=== PATIENT | male | born 1975 | race Caucasian/White ===

== ENCOUNTER 2019-05-16 14:30 | Inpatient (IN) ==
--- NOTE | 2019-05-16 15:31 | Emergency Department Note ---
Disposition Clinical Impression: ALLA (acute kidney injury) CHI (closed head injury) Qualifiers: Encounter type: initial encounter Qualified Code(s): S09.90XA - Unspecified injury of head, initial encounter Pneumonia Qualifiers: Pneumonia type: due to unspecified organism Laterality: right Lung location: upper lobe of lung Qualified Code(s): J18.1 - Lobar pneumonia, unspecified organism Sepsis Qualifiers: Sepsis type: sepsis due to unspecified organism Sepsis acute organ dysfunction status: unspecified Qualified Code(s): A41.9 - Sepsis, unspecified organism Disposition: Admitted As Inpatient Condition: Good Forms: ED Satisfaction Letter Time of Disposition: 17:28 General Adult HPI - General Chief complaint: ED Fall Stated complaint: Pain all over post fall 2 days ago Time Seen by Provider: 05/16/19 15:03 Source: patient Mode of arrival: private vehicle Limitations: no limitations Nursing Notes Reviewed: Yes Vital Signs Reviewed: Yes - History of Present Illness Pain Scale: 10 - Related Data Home Medications Medication Instructions Recorded Confirmed Aspirin 81 mg PO DAILY 06/30/15 02/22/19 Albuterol Neb [Proventil Neb] 2.5 mg IH Q4HR 09/08/16 02/22/19 Gabapentin [Neurontin] 600 mg PO TID 09/08/16 02/22/19 Multivitamin [One Daily Essential] 1 each PO DAILY 09/08/16 02/22/19 Lisinopril-HCTZ 10-12.5 [Prinzide 1 tab PO DAILY 02/24/19 02/24/19 10-12.5] Previous Rx's Medication Instructions Recorded Benzonatate [Tessalon] 100 mg PO TID PRN 5 Days #15 02/26/19 capsule Nicotine Patch [Nicoderm] 21 mg TD DAILY #15 patch.td24 02/26/19 levoFLOXacin [Levaquin] 750 mg PO DAILY #4 tablet 02/26/19 Allergies Allergy/AdvReac Type Severity Reaction Status Date / Time ibuprofen AdvReac Vomiting Verified 02/24/19 07:43 Past Medical History - Past Medical History Medical history: Reports: CHF, hypertension, other Surgical history: Reports: orthopedic, other, other Psychiatric history: Reports: no psych history - Social History Smoking Status: Current every day smoker Smokeless Tobacco Status: No Alcohol use: Reports: occasionally Drug use: Reports: none Physical Exam - General General appearance: alert Course Vital Signs Temperature 98.8 F 05/16/19 14:43 Pulse Rate 120 05/16/19 14:43 Respiratory Rate 20 05/16/19 14:43 Blood Pressure 100/50 05/16/19 14:43 O2 Sat by Pulse Oximetry 96 05/16/19 14:43 Temperature 98.8 F 05/16/19 15:05 Pulse Rate 119 05/16/19 15:09 Respiratory Rate 17 05/16/19 15:09 Blood Pressure 150/113 05/16/19 15:09 O2 Sat by Pulse Oximetry 94 05/16/19 15:09 Oxygen Delivery Oxygen Delivery Room Air Medical Decision Making - Lab Data Result diagrams: 05/16/19 15:44 05/16/19 15:44 Lab Results 05/16/19 05/16/19 05/16/19 Range/Units 15:44 15:44 15:44 WBC 12.5 H (4.3-11.1) K/mcL RBC 5.02 (4.19-5.50) M/mcL Hgb 15.4 (12.9-16.9) g/dL Hct 45.9 (37.5-50.1) % MCV 91.4 (83.0-100.0) fL MCH 30.7 (28.0-33.3) pg MCHC 33.6 (31.6-35.5) g/dL RDW 14.4 (11.5-14.5) % Plt Count 206 (140-400) K/mcL MPV 10.6 (9.4-12.4) fL Immature Gran % 0.5 (0-4) % Seg Neutrophils % 75.9 % Lymphocytes % 13.4 % Monocytes % 9.8 % Eosinophils % 0.2 % Basophils % 0.2 % Neutrophils # 9.5 H (1.6-8.9) K/mcL Lymphocytes # 1.7 (0.6-4.6) K/mcL Monocytes # 1.2 (0.0-1.3) K/mcL Eosinophils # 0.0 (0.0-0.6) K/mcL Basophils # 0.0 (0.0-0.2) K/mcL Sodium 128 L (136-145) mEq/L Potassium 4.4 (3.5-5.1) mEq/L Chloride 96 L (98-107) mEq/L Carbon Dioxide 27 (23-29) mEq/L BUN 18 (6-20) mg/dL Creatinine 1.66 H (0.70-1.30) mg/dL Est GFR ( Amer) 55 L (> 60) Est GFR (Non-Af Amer) 45 L (> 60) BUN/Creatinine Ratio 11 (6-26) Glucose 86 (70-105) mg/dL Calculated Osmolality 267 L (280-300) Lactic Acid (0.5-2.2) mmol/L Calcium 9.1 (8.6-10.3) mg/dL Creatine Kinase 101 (30-223) Units/L 05/16/19 Range/Units 16:51 WBC (4.3-11.1) K/mcL RBC (4.19-5.50) M/mcL Hgb (12.9-16.9) g/dL Hct (37.5-50.1) % MCV (83.0-100.0) fL MCH (28.0-33.3) pg MCHC (31.6-35.5) g/dL RDW (11.5-14.5) % Plt Count (140-400) K/mcL MPV (9.4-12.4) fL Immature Gran % (0-4) % Seg Neutrophils % % Lymphocytes % % Monocytes % % Eosinophils % % Basophils % % Neutrophils # (1.6-8.9) K/mcL Lymphocytes # (0.6-4.6) K/mcL Monocytes # (0.0-1.3) K/mcL Eosinophils # (0.0-0.6) K/mcL Basophils # (0.0-0.2) K/mcL Sodium (136-145) mEq/L Potassium (3.5-5.1) mEq/L Chloride (98-107) mEq/L Carbon Dioxide (23-29) mEq/L BUN (6-20) mg/dL Creatinine (0.70-1.30) mg/dL Est GFR ( Amer) (> 60) Est GFR (Non-Af Amer) (> 60) BUN/Creatinine Ratio (6-26) Glucose (70-105) mg/dL Calculated Osmolality (280-300) Lactic Acid 0.9 (0.5-2.2) mmol/L Calcium (8.6-10.3) mg/dL Creatine Kinase (30-223) Units/L Attestation Statement - Attestation Attestation: Andrey Esposito D.O., examined this patient and my medical decision-making was reviewed with the Resident Physician. I agree with the documented findings, disposition and treatment plan as described except to the extent set forth below. This is a 44-year-old male presenting with multiple complaints. Patient persisted 2 days ago he fell back and hit his head. He was attempting to move something and then fell back. Denies loss of consciousness with the fall. He was immediately ambulatory afterwards. He states ever since then he has late at home and slept since Sunday however then he says that he has been up and about at times. He states yesterday that he had a syncopal episode and fell on his dog. He has a remote history of numerous syncopal episodes in the past attributed to his medications. He is unsafe having pain in his left thigh which was pain that made him fall originally. No pain in the hip or knee. No chest pain. No other complaints. General: Alert, no acute distress HENT: Normocephalic, Atraumatic Neck: No JVD. No midline tenderness Cardiovascular: Tachycardic, regular rhythm. No appreciable murmurs Respiratory: Lungs CTAB. No wheezing/rhonchi Abdominal: Soft, non tender. No peritoneal findings Extremities: No peripheral edema no tenderness to palpation over the left hip or knee. He has some pain along the left thigh. Neuro: Alert, GCS 15, Mentating appropriately, No focal deficits Skin: Warm, Dry Plan: EKG, CT head, basic labs, urinalysis. ED Procedure Note: EKG interpretation - I agree with the resident physician's documentation and interpretation of the patient's EKG. Sinus tachycardia with rate of 113. Normal axis. Normal intervals. Normal R- wave progression. There is artifact in all leads. No gross ST elevations or depressions. No acute ischemic findings. Imaging and labs reviewed. Consistent with PNA w/ sepsis. Has ALLA, receiving 2L NS here. Rocephin and zithromax ordered. Discussed with hospitalist who requests procalcitonin and Chest CT. Admitted to hospitalist service.
[2019-05-16] MEDS ORDERED: Dicyclomine 20 MG/2 ML AMPUL IM ONE (15:32)
--- NOTE | 2019-05-16 15:36 | Emergency Department Note ---
Disposition Clinical Impression: ALLA (acute kidney injury) CHI (closed head injury) Qualifiers: Encounter type: initial encounter Qualified Code(s): S09.90XA - Unspecified injury of head, initial encounter Pneumonia Qualifiers: Pneumonia type: due to unspecified organism Laterality: right Lung location: upper lobe of lung Qualified Code(s): J18.1 - Lobar pneumonia, unspecified organism Sepsis Qualifiers: Sepsis type: sepsis due to unspecified organism Sepsis acute organ dysfunction status: without acute organ dysfunction Qualified Code(s): A41.9 - Sepsis, unspecified organism Disposition: Admitted As Inpatient Condition: Good Referrals: Minnie Ramirez DO [Primary Care Provider] - Forms: ED Satisfaction Letter Time of Disposition: 17:29 General Adult HPI - General Chief complaint: ED Fall Stated complaint: Pain all over post fall 2 days ago Time Seen by Provider: 05/16/19 15:03 Source: patient Mode of arrival: private vehicle Limitations: no limitations Nursing Notes Reviewed: Yes Vital Signs Reviewed: Yes - History of Present Illness HPI Narrative: Patient is a 44-year-old male that presents emergency Department with a chief complaint of hurts all over. Patient states that approximate 3 days ago he was on the back of a [employer] 1500 pickup. Patient states that he is in the back of pickup moving something when he stepped off the and gait and fell. Patient states that he does not think that he lost consciousness and was able to get up off the ground without any assistance. Patient states that he has been laying around the house for the past 2 days and has not really woken up other than to clean up his pants due to having a bowel movement. Patient states that he tried to eat today when he woke up and then vomited. Patient states that he is having left thigh and hip pain. Patient also reports that he has had abdominal cramping and is had some diarrhea. Pain Scale: 10 - Related Data Home Medications Medication Instructions Recorded Confirmed Aspirin 81 mg PO DAILY 06/30/15 02/22/19 Albuterol Neb [Proventil Neb] 2.5 mg IH Q4HR 09/08/16 02/22/19 Gabapentin [Neurontin] 600 mg PO TID 09/08/16 02/22/19 Multivitamin [One Daily Essential] 1 each PO DAILY 09/08/16 02/22/19 Lisinopril-HCTZ 10-12.5 [Prinzide 1 tab PO DAILY 02/24/19 02/24/19 10-12.5] Previous Rx's Medication Instructions Recorded Benzonatate [Tessalon] 100 mg PO TID PRN 5 Days #15 02/26/19 capsule Nicotine Patch [Nicoderm] 21 mg TD DAILY #15 patch.td24 02/26/19 levoFLOXacin [Levaquin] 750 mg PO DAILY #4 tablet 02/26/19 Allergies Allergy/AdvReac Type Severity Reaction Status Date / Time ibuprofen AdvReac Vomiting Verified 02/24/19 07:43 All systems ED: reviewed and negative except as stated. Constitutional: Denies: fever Cardiovascular: Denies: chest pain Respiratory: Denies: dyspnea Gastrointestinal: Reports: abdominal pain, nausea, vomiting, diarrhea Neurological: Denies: weakness, numbness, paresthesias Past Medical History - Past Medical History Medical history: Reports: CHF, hypertension, other Surgical history: Reports: orthopedic, other, other Psychiatric history: Reports: no psych history - Social History Smoking Status: Current every day smoker Smokeless Tobacco Status: No Alcohol use: Reports: occasionally Drug use: Reports: none Physical Exam - General Limitations: no limitations General appearance: alert, in no apparent distress - Head Head exam: atraumatic, normocephalic - Eye Eye exam: Present: normal appearance, EOMI - Neck Neck exam: Present: normal inspection, full ROM, trachea midline - Respiratory Respiratory exam: Present: normal lung sounds bilaterally. Absent: respiratory distress, wheezes - Cardiovascular Cardiovascular exam: Present: regular rate, normal rhythm, normal heart sounds, +S1, +S2 - Abdominal Exam Abdominal exam: Present: soft, tenderness, normal bowel sounds - Neurological Exam Neurological exam: Present: alert, oriented X3 - Psychiatric Psychiatric exam: Present: normal affect, normal mood - Skin Skin exam: Present: warm, dry, other (Patient has scars on his abdomen from prior injections from IV drug use.) Course Vital Signs Temperature 98.8 F 05/16/19 14:43 Pulse Rate 120 05/16/19 14:43 Respiratory Rate 20 05/16/19 14:43 Blood Pressure 100/50 05/16/19 14:43 O2 Sat by Pulse Oximetry 96 05/16/19 14:43 Temperature 98.8 F 05/16/19 15:05 Pulse Rate 119 05/16/19 15:09 Respiratory Rate 17 05/16/19 15:09 Blood Pressure 150/113 05/16/19 15:09 O2 Sat by Pulse Oximetry 94 05/16/19 15:09 Oxygen Delivery Oxygen Delivery Room Air Medical Decision Making - MDM Narrative Medical decision making narrative: Due the patient's into the emergency department with reports of a fall and generalized pain we will obtain a CT scan of the patient's head, x-ray of the left hip and a chest x-ray. Basic laboratory testings also be obtained. Patient's imaging shows a right upper lobe pneumonia. Patient's x-rays of his hip were negative. His CT of his head was negative did not show any acute process. Patient did have mildly elevated white blood cell count, is tachycardic to Tequin does meet sepsis criteria. Patient was given IV fluids and antibiotics here in the emergency department. Patient will require admission to the hospital for further evaluation and management of the sepsis secondary to pneumonia. Spoke with the admitting hospitalist and he is accepted the patient to their service. Patient be admitted to the hospital this time for further evaluation and management of his sepsis and pneumonia. - Medical Records Medical records reviewed: Yes I reviewed the patient's medical records. - Lab Data Lab results reviewed: Yes I reviewed the patient's lab results. Result diagrams: 05/16/19 15:44 05/16/19 15:44 Lab Results 05/16/19 05/16/19 05/16/19 Range/Units 15:44 15:44 15:44 WBC 12.5 H (4.3-11.1) K/mcL RBC 5.02 (4.19-5.50) M/mcL Hgb 15.4 (12.9-16.9) g/dL Hct 45.9 (37.5-50.1) % MCV 91.4 (83.0-100.0) fL MCH 30.7 (28.0-33.3) pg MCHC 33.6 (31.6-35.5) g/dL RDW 14.4 (11.5-14.5) % Plt Count 206 (140-400) K/mcL MPV 10.6 (9.4-12.4) fL Immature Gran % 0.5 (0-4) % Seg Neutrophils % 75.9 % Lymphocytes % 13.4 % Monocytes % 9.8 % Eosinophils % 0.2 % Basophils % 0.2 % Neutrophils # 9.5 H (1.6-8.9) K/mcL Lymphocytes # 1.7 (0.6-4.6) K/mcL Monocytes # 1.2 (0.0-1.3) K/mcL Eosinophils # 0.0 (0.0-0.6) K/mcL Basophils # 0.0 (0.0-0.2) K/mcL Sodium 128 L (136-145) mEq/L Potassium 4.4 (3.5-5.1) mEq/L Chloride 96 L (98-107) mEq/L Carbon Dioxide 27 (23-29) mEq/L BUN 18 (6-20) mg/dL Creatinine 1.66 H (0.70-1.30) mg/dL Est GFR ( Amer) 55 L (> 60) Est GFR (Non-Af Amer) 45 L (> 60) BUN/Creatinine Ratio 11 (6-26) Glucose 86 (70-105) mg/dL Calculated Osmolality 267 L (280-300) Lactic Acid (0.5-2.2) mmol/L Calcium 9.1 (8.6-10.3) mg/dL Creatine Kinase 101 (30-223) Units/L 05/16/19 Range/Units 16:51 WBC (4.3-11.1) K/mcL RBC (4.19-5.50) M/mcL Hgb (12.9-16.9) g/dL Hct (37.5-50.1) % MCV (83.0-100.0) fL MCH (28.0-33.3) pg MCHC (31.6-35.5) g/dL RDW (11.5-14.5) % Plt Count (140-400) K/mcL MPV (9.4-12.4) fL Immature Gran % (0-4) % Seg Neutrophils % % Lymphocytes % % Monocytes % % Eosinophils % % Basophils % % Neutrophils # (1.6-8.9) K/mcL Lymphocytes # (0.6-4.6) K/mcL Monocytes # (0.0-1.3) K/mcL Eosinophils # (0.0-0.6) K/mcL Basophils # (0.0-0.2) K/mcL Sodium (136-145) mEq/L Potassium (3.5-5.1) mEq/L Chloride (98-107) mEq/L Carbon Dioxide (23-29) mEq/L BUN (6-20) mg/dL Creatinine (0.70-1.30) mg/dL Est GFR ( Amer) (> 60) Est GFR (Non-Af Amer) (> 60) BUN/Creatinine Ratio (6-26) Glucose (70-105) mg/dL Calculated Osmolality (280-300) Lactic Acid 0.9 (0.5-2.2) mmol/L Calcium (8.6-10.3) mg/dL Creatine Kinase (30-223) Units/L - Radiology Data Radiology results reviewed: Yes I reviewed the patient's radiology results. Chest X-Ray 05/16/19 15:57 IMPRESSION: Large amount of opacity in the upper right lung worrisome for acute pneumonia. No acute traumatic injury identified. D/ / Maurizio Ward MD / Maurizio Ward MD Interpreting Provider: Maurizio Ward MD Hip X-Ray 05/16/19 16:00 IMPRESSION: No acute fracture or dislocation the left hip. Mild degenerative changes at the left hip. D/ / John Cuevas MD / John Cuevas MD Interpreting Provider: John Cuevas MD Head CT 05/16/19 16:40 IMPRESSION: No acute intracranial abnormality. D/ / David Villegas MD / David Villegas MD Interpreting Provider: David Villegas MD - EKG Data EKG #1 EKG attestation: Yes I reviewed and interpreted this EKG. EKG results narrative: Patient's EKG shows a sinus rhythm and rate of 113, QRS duration 76, QTc of 379. No evidence of STEMI on EKG. Attestation Statement - Attestation Attestation: Andrey Esposito D.O., examined this patient and my medical decision-making was reviewed with the Resident Physician. I agree with the documented findings, disposition and treatment plan as described except to the extent set forth below.
[2019-05-16 16:00] LABS: Basophils % 0.2 %; Eosinophils % 0.2 %; Hematocrit 45.9 % (37.5-50.1); Hemoglobin 15.4 g/dL (12.9-16.9); Immature Granulocytes % 0.5 % (0-4); Lymphocytes # 1.7 K/mcL (0.6-4.6); Lymphocytes % 13.4 %; Mean Corpuscular HGB Conc 33.6 g/dL (31.6-35.5); Mean Corpuscular Hemoglobin 30.7 pg (28.0-33.3); Mean Corpuscular Volume 91.4 fL (83.0-100.0); Mean Platelet Volume 10.6 fL (9.4-12.4); Monocytes # 1.2 K/mcL (0.0-1.3); Monocytes % 9.8 %; Neutrophils # 9.5 K/mcL (1.6-8.9); Platelet Count 206 K/mcL (140-400); Red Blood Count 5.02 M/mcL (4.19-5.50); Red Cell Distribution Width 14.4 % (11.5-14.5); Segmented Neutrophils % 75.9 %; White Blood Count 12.5 K/mcL (4.3-11.1)
[2019-05-16] MEDS ORDERED: cefTRIAXone 1,000 MG in Water for inj. (sterile) 10 ML IVP ONE (16:12)
[2019-05-16] MEDS ORDERED: Azithromycin 500 MG in 0.9 % Sodium Chloride 250 ML IVPB ONE (16:12)
[2019-05-16] MEDS ORDERED: 0.9 % Sodium Chloride 1,000 ML IVC ONE ×2 (16:12→16:48)
[2019-05-16 16:19] LABS: Calcium 9.1 mg/dL (8.6-10.3); Potassium 4.4 mEq/L (3.5-5.1)
[2019-05-16] MEDS ORDERED: Naloxone 0.4 MG/ML INJ IVP PRN (17:27)
[2019-05-16] MEDS ORDERED: Ondansetron 4 MG/2 ML VIAL IVP PRN (17:27)
--- NOTE | 2019-05-16 17:47 | Internal Med History&Physical ---
Date of Encounter: 05/16/19 Time of Encounter: 17:20 Internal Medicine - H&P: HPI Chief complaint: productive cough, fall Admitted From: Home History of present illness: Mr. Orr is a 44 year old male with history of tobacco abuse, HTN, and morbid obesity, who presented to the ED for productive cough for the last few weeks. Associated with intermittent SOB. Denies any fever/chills, sick contacts, or flu-like symptoms. Pt also had an episode of fall from his truck as he felt like he "pulled his muscle on his L thigh". He ended up hitting the back of his head but denies any loss of consciousness. No report of seizure-like activities or loss of bowel/bladder function. No chest pain, palpitation, orthopnea, PND, or leg swelling. Denies any abdominal pain, change in bowel habits, or dysuria. He continues to smoke about a pack and a half per day. In the ED, he was afebrile but tachycardic in 120s. Labwork showed leukocytosis of 12.5, hyponatremia 128, and Cr 1.66 (baseline 0.9). Lactic acid normal. EKG showed sinus tachycardia without ST-T changes concerning for ischemia. Chest x-ray showed airspace opacity in the right upper lobe concerning for pneumonia. CT head negative for sequelae of traumatic injury and hip x-ray was also unremarkable. Patient was started on IV Rocephin/azithromycin and admitted for further management. Past Med Surg Social Fam HX - Past Medical History Medical history: COPD, hypertension, other Additional medical history: "leaky heart valve" Psychiatric history: no psych history - Past Surgical History Surgical History: orthopedic, other, other Additional surgical history: rt hip,throat, right shoulder surgery - Social History Smoking Status: Current every day smoker Smokeless Tobacco Status: No Alcohol use: occasionally Drug use: none - Family History Mother Adopted: Yes Living Status: Still Living Hx Family Cardiac Disorders: Yes (CHF, dad) Hx Family Respiratory Disorders: No Hx Family Cancer: Yes (mother, "woman cancer") Hx Family GI Disorders: No Hx Family Endocrine Disorder: No Hx Family Neuromuscular Disorders: No Hx Family Neurologic Disorders: No Hx Family HEENT Disorders: No Hx Family Autoimmune Disorders: No Internal Medicine - H&P: Meds Aspirin 81 mg PO DAILY 06/30/15 [History] Albuterol Neb [Proventil Neb] 2.5 mg IH Q4HR 09/08/16 [History] Gabapentin [Neurontin] 600 mg PO TID 09/08/16 [History] Multivitamin [One Daily Essential] 1 each PO DAILY 09/08/16 [History] Lisinopril-HCTZ 10-12.5 [Prinzide 10-12.5] 1 tab PO DAILY 02/24/19 [History] Benzonatate [Tessalon] 100 mg PO TID PRN 5 Days #15 capsule 02/26/19 [Rx] Nicotine Patch [Nicoderm] 21 mg TD DAILY #15 patch.td24 02/26/19 [Rx] levoFLOXacin [Levaquin] 750 mg PO DAILY #4 tablet 02/26/19 [Rx] Allergy/AdvReac Type Severity Reaction Status Date / Time ibuprofen AdvReac Vomiting Verified 02/24/19 07:43 All Systems PM: A 10-system review of systems was performed and is negative for pertinent findings except as documented above in the HPI. - Constitutional Vitals: Temp Pulse Resp BP Pulse Ox 98.8 F 119 17 150/113 94 05/16/19 15:05 05/16/19 15:09 05/16/19 15:09 05/16/19 15:09 05/16/19 15:09 Exam: General: Alert and oriented, mild distress. Obese male HEENT:EOMI, pupils equal, round and reactive. Cardiovascular:Normal S1 & S2, No JVD. Pulse regular but tachycardic Lungs: Scattered rhonchi R>L Abdomen:Soft, non-tender, no rigidity. Extremities:No deformity or swelling Neurological:Normal cognition and motor skills. Non-focal Skin:Normal color, no rash, no lesions. Pulses:Carotid and radial pulses normal +2. Rest of the physical exam is non contributory Internal Med - H&P Results - Labs CBC & Chem 7: 05/16/19 15:44 05/16/19 15:44 Labs: Short CBC 05/16/19 Range/Units 15:44 WBC 12.5 H (4.3-11.1) K/mcL Hgb 15.4 (12.9-16.9) g/dL Hct 45.9 (37.5-50.1) % Plt Count 206 (140-400) K/mcL Neutrophils # 9.5 H (1.6-8.9) K/mcL BMP 05/16/19 15:44 Sodium 128 L Potassium 4.4 Chloride 96 L Carbon Dioxide 27 BUN 18 Creatinine 1.66 H Glucose 86 Calcium 9.1 - Impressions ITS Impressions Chest X-Ray 05/16/19 15:57 IMPRESSION: Large amount of opacity in the upper right lung worrisome for acute pneumonia. No acute traumatic injury identified. D/ / Maurizio Ward MD / Maurizio Ward MD Interpreting Provider: Maurizio Ward MD Hip X-Ray 05/16/19 16:00 IMPRESSION: No acute fracture or dislocation the left hip. Mild degenerative changes at the left hip. D/ / John Cuevas MD / John Cuevas MD Interpreting Provider: John Cuevas MD Head CT 05/16/19 16:40 IMPRESSION: No acute intracranial abnormality. D/ / David Villegas MD / David Villegas MD Interpreting Provider: David Villegas MD - Assessment and Plan (1) Severe sepsis Current Visit: Yes Status: Acute Assessment and plan: Presented with leukocytosis and tachycardia with pulmonary source of infection as identified on chest x-ray associated with ALLA recently hospitalized within 90 days due to PNA and was discharged on Levaquin at that time was started on IV Dexter/azithromycin in the ED, will change to IV Zosyn and obtain MRSA screen Sputum culture, Legionella/strep antigen, respiratory viral panel Follow up on blood cultures CT chest pending would consider pulmonology consult depending on his hospital course (2) PNA (pneumonia) Current Visit: Yes Status: Acute Assessment and plan: As above Qualifiers: Pneumonia type: due to unspecified organism Laterality: right Lung location: upper lobe of lung Qualified Code(s): J18.1 - Lobar pneumonia, unspecified organism (3) ALLA (acute kidney injury) Current Visit: Yes Status: Acute Assessment and plan: associated with sepsis as above was given bolus of IVF in the ED will keep the pt on mIVF overnight and monitor BMP (4) Fall Current Visit: Yes Status: Acute Assessment and plan: likely orthostatics in the setting of ALLA and probably hypovolemic hyponatremia CT head -ve for acute intracranial process check orthostatic vitals Qualifiers: Encounter type: initial encounter Qualified Code(s): W19.XXXA - Unspecified fall, initial encounter (5) Hyponatremia Current Visit: Yes Status: Acute Assessment and plan: similar presentation in 02/2019, responded to IVF given IVF boluses in the ED, monitor BMP with AM lab (6) Tobacco abuse Current Visit: No Status: Chronic Assessment and plan: counseled on smoking cessation, nicotine replacement therapy (7) Morbid obesity with BMI of 50.0-59.9, adult Current Visit: No Status: Chronic Assessment and plan: Lifestyle modifications emphasized (8) DVT prophylaxis Current Visit: No Status: Acute Assessment and plan: SQ hep - Time Spent With Patient Total time spent is greater than 50% in coordination of care (as documented) at patient's floor/unit and/or counseling patient: 25 - 35 minutes
[2019-05-16 17:54] LABS: Bilirubin,Urine Small (Negative); Blood,Urine Negative (Negative); Clarity,Urine Turbid (Clear); Glucose,Urine (UA) Normal (Normal); Ketones,Urine Trace mg/dL (Negative); Leukocyte Esterase,Urine Small (Negative); Nitrite,Urine Positive (Negative); PH,Urine 5.5 pH Units (5.0-8.0); Protein,Urine 100 mg/dL (Neg-Trace); Specific Gravity,Urine 1.029 (1.010-1.025); Urobilinogen,Urine Normal (Normal)
[2019-05-16 17:55] LABS: Color,Urine Dark Yellow (Yellow)
[2019-05-16 18:00] LABS: Amphetamine Screen,Urine Negative ng/mL (Cutoff=1000); Barbiturate Screen,Urine Negative ng/mL (Cutoff=200); Benzodiazepines Screen,Urine Negative ng/mL (Cutoff=200); Cannabinoid Screen,Urine Positive ng/mL (Cutoff = 50); Cocaine Screen,Urine Negative ng/mL (Cutoff= 300); Opiate Screen,Urine Negative ng/mL (Cutoff=300); Phencyclidine Screen,Urine Negative ng/mL (Cutoff=25)
[2019-05-16 18:06] LABS: RBC,Urine 0-3 per hpf (0-3); WBC,Urine 0-3 per hpf (0-3)
[2019-05-16 18:08] LABS: Bacteria,Urine Few per hpf (None-Few); Squamous Epithelial Cell,Urine Moderate per lpf (None-Few)
[2019-05-16 18:09] LABS: Hyaline Casts,Urine Moderate per lpf (None-Few)
[2019-05-16] MEDS ORDERED: Acetaminophen IV 1,000 MG/100 ML INFUS..BTL IVPB ONE (22:23)
[2019-05-16] MEDS: Levalbuterol Neb 0.63 MG/3 ML IH SCH (22:46)
[2019-05-16] MEDS: Gabapentin 400 MG CAPSULE PO SCH (23:12)
[2019-05-16] MEDS: Nicotine 21 MG PATCH.TD24 TD SCH (23:12)
[2019-05-16] MEDS: *HR* Heparin 5,000 UNIT/ML VIAL SQ SCH (23:13)
[2019-05-17] MEDS: 0.9 % Sodium Chloride 1,000 ML IVC SCH ×2 (00:23→00:39)
[2019-05-17] MEDS: Piperacillin/Tazobactam 3.375 GM in 0.9 % Sodium Chloride Mini Bag 100 ML IVPB SCH ×3 (00:23→15:44)
[2019-05-17] MEDS ORDERED: Ketorolac 15 MG/ML VIAL IVP ONE (03:28)
[2019-05-17] MEDS: Levalbuterol Neb 0.63 MG/3 ML IH SCH ×4 (03:56→22:37)
[2019-05-17] MEDS: *HR* Heparin 5,000 UNIT/ML VIAL SQ SCH ×3 (05:11→21:21)
[2019-05-17 06:55] LABS: Adenovirus Not Detected (Not Detect); Bordetella Pertussis Not Detected (Not Detect); Chlamydophila pneumoniae Not Detected (Not Detect); Coronavirus 229E Not Detected (Not Detect); Coronavirus HKU1 Not Detected (Not Detect); Coronavirus NL63 Not Detected (Not Detect); Coronavirus OC43 Not Detected (Not Detect); Human Metapneumovirus Not Detected (Not Detect); Human Rhinovirus/Enterovirus Not Detected (Not Detect); Influenza A Subtype 2009 H1 Not Detected (Not Detect); Influenza A Untypeable Not Detected (Not Detect); Influenza B Not Detected (Not Detect); Mycoplasma pneumoniae Not Detected (Not Detect); Parainfluenza Virus 1 Not Detected (Not Detect); Parainfluenza Virus 2 Not Detected (Not Detect); Parainfluenza Virus 3 Not Detected (Not Detect); Parainfluenza Virus 4 Not Detected (Not Detect); Respiratory Syncytial Virus Not Detected (Not Detect)
[2019-05-17] MEDS ORDERED: diazePAM 5 MG TABLET PO PRN (07:58)
[2019-05-17] MEDS: Gabapentin 400 MG CAPSULE PO SCH ×3 (08:11→21:21)
[2019-05-17] MEDS: Aspirin 81 MG TAB.CHEW PO SCH (08:11)
[2019-05-17] MEDS: Nicotine 21 MG PATCH.TD24 TD SCH (08:12)
[2019-05-17] MEDS ORDERED: traMADol 50 MG TABLET PO PRN (10:58)
[2019-05-17] MEDS ORDERED: *HR* HYDROcodone/Acet 5/325 mg TABLET PO PRN (10:58)
[2019-05-17] MEDS: *HR* OxyCODONE Immed Rel 5 MG TABLET PO PRN ×2 (12:02→18:27)
--- NOTE | 2019-05-17 13:01 | Internal Med Progress Note ---
Hospitalist Progress Note - Encounter Date of Encounter: 05/17/19 Time of Encounter: 10:30 - Subjective Interval History: Continues to report significant L thigh pain. SOB improved. Tmax 100.5 overnight - Exam Vitals: Temp Pulse Resp BP Pulse Ox 98.7 F 113 18 130/74 95 05/17/19 11:36 05/17/19 11:36 05/17/19 11:36 05/17/19 11:36 05/17/19 11:36 Exam: General: Alert and oriented, mild distress. Obese male Cardiovascular:Normal S1 & S2, No JVD. Pulse regular but tachycardic Lungs: Scattered rhonchi R>L Abdomen:Soft, non-tender, no rigidity. Extremities:No deformity or swelling but has tenderness on palpation at the lateral aspect of L proximal thigh Neurological:Normal cognition and motor skills. Non-focal Skin:Normal color, no rash, no lesions. - Assessment and Plan (1) Severe sepsis Current Visit: Yes Status: Acute Assessment and Plan: Presented with leukocytosis and tachycardia with pulmonary source of infection as identified on chest x-ray and CT chest associated with ALLA recently hospitalized within 90 days due to PNA and was discharged on Levaquin at that time was started on IV Dexter/azithromycin in the ED -> switched to IV Zosyn Legionella/strep antigen -ve, respiratory viral panel -ve MRSA screen pending Sputum culture if able to expectorate Follow up on blood cultures (2) PNA (pneumonia) Current Visit: Yes Status: Acute Assessment and Plan: As above (3) ALLA (acute kidney injury) Current Visit: Yes Status: Acute Assessment and Plan: associated with sepsis as above was given bolus of IVF in the ED will keep the pt on mIVF overnight, repeat BMP pending (4) Fall Current Visit: Yes Status: Acute Assessment and Plan: likely orthostatics in the setting of ALLA and probably hypovolemic hyponatremia CT head -ve for acute intracranial process orthostatic vitals not done yet, reinforced the importance due to persistent L hip pain, will obtain CT. CPK normal (5) Hyponatremia Current Visit: Yes Status: Acute Assessment and Plan: similar presentation in 02/2019, responded to IVF given IVF boluses in the ED, BMP pending this morning (6) Tobacco abuse Current Visit: No Status: Chronic Assessment and Plan: counseled on smoking cessation, nicotine replacement therapy (7) Morbid obesity with BMI of 50.0-59.9, adult Current Visit: No Status: Chronic Assessment and Plan: Lifestyle modifications emphasized (8) DVT prophylaxis Current Visit: No Status: Acute Assessment and Plan: SQ hep - Time Spent with Patient Total time spent is greater than 50% in coordination of care (as documented) at patient's floor/unit and/or counseling patient: 25 - 35 minutes Plan of Care Discussed with: patient Internal Medicine: Result - Labs CBC & Chem 7: 05/16/19 15:44 05/16/19 15:44 Labs: Short CBC 05/16/19 Range/Units 15:44 WBC 12.5 H (4.3-11.1) K/mcL Hgb 15.4 (12.9-16.9) g/dL Hct 45.9 (37.5-50.1) % Plt Count 206 (140-400) K/mcL Neutrophils # 9.5 H (1.6-8.9) K/mcL BMP 05/16/19 15:44 Sodium 128 L Potassium 4.4 Chloride 96 L Carbon Dioxide 27 BUN 18 Creatinine 1.66 H Glucose 86 Calcium 9.1 Urine 05/16/19 Range/Units 17:35 Urine Color Dark Yellow (Yellow) Urine Clarity Turbid A (Clear) Urine pH 5.5 (5.0-8.0) pH Units Ur Specific [place] 1.029 H (1.010-1.025) Urine Protein 100 H (Neg-Trace) mg/dL Urine Glucose (UA) Normal (Normal) mg/dL - Impressions Impressions Chest X-Ray 05/16/19 15:57 IMPRESSION: Large amount of opacity in the upper right lung worrisome for acute pneumonia. No acute traumatic injury identified. D/ / Maurizio Ward MD / Maurizio Ward MD Interpreting Provider: Maurizio Ward MD Hip X-Ray 05/16/19 16:00 IMPRESSION: No acute fracture or dislocation the left hip. Mild degenerative changes at the left hip. D/ / John Cuevas MD / John Cuevas MD Interpreting Provider: John Cuevas MD Head CT 05/16/19 16:40 IMPRESSION: No acute intracranial abnormality. D/ / David Villegas MD / David Villegas MD Interpreting Provider: David Villegas MD Chest CT 05/16/19 20:12 IMPRESSION: 1. Right upper lobe airspace opacification with air bronchograms suggesting pneumonia. No proximally obstructing mass 2. Mediastinal lymph nodes have enlarged measuring 13 mm and 11 mm. Given the process in the right upper lobe these most likely are reactive D/ / Tevin Ashton MD / Tevin Ashton MD Interpreting Provider: Tevin Ashton MD Consult Discharge Plan - Plan Referrals: Minnie Ramirez, [Primary Care Provider] - (2) PNA (pneumonia) Qualifiers: Pneumonia type: due to unspecified organism Laterality: right Lung location: upper lobe of lung Qualified Code(s): J18.1 - Lobar pneumonia, unspecified organism (4) Fall Qualifiers: Encounter type: initial encounter Qualified Code(s): W19.XXXA - Unspecified fall, initial encounter
[2019-05-17 13:56] LABS: Basophils % 0.5 %; Eosinophils % 0.3 %; Hematocrit 41.2 % (37.5-50.1); Hemoglobin 13.8 g/dL (12.9-16.9); Immature Granulocytes % 0.6 % (0-4); Lymphocytes # 1.4 K/mcL (0.6-4.6); Lymphocytes % 17.5 %; Mean Corpuscular HGB Conc 33.5 g/dL (31.6-35.5); Mean Corpuscular Hemoglobin 30.5 pg (28.0-33.3); Mean Corpuscular Volume 90.9 fL (83.0-100.0); Mean Platelet Volume 11.3 fL (9.4-12.4); Monocytes # 0.6 K/mcL (0.0-1.3); Monocytes % 8.1 %; Neutrophils # 5.8 K/mcL (1.6-8.9); Platelet Count 159 K/mcL (140-400); Red Blood Count 4.53 M/mcL (4.19-5.50); Red Cell Distribution Width 14.4 % (11.5-14.5)
[2019-05-17 14:06] LABS: BUN/Creatinine Ratio 22 (6-26); Blood Urea Nitrogen 20 mg/dL (6-20); Calcium 8.4 mg/dL (8.6-10.3); Carbon Dioxide 24 mEq/L (23-29); Chloride 99 mEq/L (98-107); Glucose 111 mg/dL (70-105); Osmolality,Calculated 271 (280-300); Potassium 4.1 mEq/L (3.5-5.1); Sodium 129 mEq/L (136-145); eGFR For African Americans > 60 (> 60); eGFR For Non-African Americans > 60 (> 60)
[2019-05-18] MEDS: Piperacillin/Tazobactam 3.375 GM in 0.9 % Sodium Chloride Mini Bag 100 ML IVPB SCH ×4 (00:19→23:58)
[2019-05-18] MEDS: Levalbuterol Neb 0.63 MG/3 ML IH SCH ×4 (03:48→22:21)
[2019-05-18] MEDS: *HR* Heparin 5,000 UNIT/ML VIAL SQ SCH ×3 (06:37→21:19)
[2019-05-18] MEDS: *HR* OxyCODONE Immed Rel 5 MG TABLET PO PRN ×4 (06:37→23:34)
[2019-05-18] MEDS: Aspirin 81 MG TAB.CHEW PO SCH (10:08)
[2019-05-18] MEDS: Nicotine 21 MG PATCH.TD24 TD SCH ×2 (10:08→19:02)
[2019-05-18] MEDS: Gabapentin 400 MG CAPSULE PO SCH ×3 (10:08→21:18)
--- NOTE | 2019-05-18 10:29 | Internal Med Progress Note ---
Hospitalist Progress Note - Encounter Date of Encounter: 05/18/19 Time of Encounter: 09:15 - Subjective Interval History: Patient appears much stronger today and reports improvement in both his left hip pain and cough. Patient continues to have low-grade temperature of 100.1 overnight however. - Exam Vitals: Temp Pulse Resp BP Pulse Ox 99.0 F 106 18 152/87 94 05/18/19 06:26 05/18/19 06:26 05/18/19 06:26 05/18/19 06:26 05/18/19 06:26 Exam: General: Alert and oriented, not in distress. Obese male Cardiovascular:Normal S1 & S2, No JVD. Pulse regular, tachycardic but improved Lungs: Scattered rhonchi and wheezing R>L Abdomen:Soft, non-tender, no rigidity. Extremities:No deformity or swelling but has tenderness on palpation at the lateral aspect of L proximal thigh which is less obvious and yesterday Neurological:Normal cognition and motor skills. Non-focal Skin:Normal color, no rash, no lesions. - Assessment and Plan (1) Severe sepsis Current Visit: Yes Status: Acute Assessment and Plan: Presented with leukocytosis and tachycardia with pulmonary source of infection as identified on chest x-ray and CT chest associated with ALLA recently hospitalized within 90 days due to PNA and was discharged on Levaquin at that time was started on IV Dexter/azithromycin in the ED -> switched to IV Zosyn, continue D2. Tmax 100.1 overnight but leukocytosis resolving pt started wheezing slightly today. Given his significant tobacco use, will add short course of PO Prednisone 40mg x 5 days Legionella/strep antigen -ve, respiratory viral panel -ve, sputum sample not adequate for culture MRSA screen -ve as well Follow up on blood cultures (2) PNA (pneumonia) Current Visit: Yes Status: Acute Assessment and Plan: As above (3) ALLA (acute kidney injury) Current Visit: Yes Status: Acute Assessment and Plan: associated with sepsis as above improved with IVF (4) Fall Current Visit: Yes Status: Acute Assessment and Plan: likely orthostatics in the setting of ALLA and probably hypovolemic hyponatremia CT head -ve for acute intracranial process CPK normal CT L hip did not show any significant abnormality (5) Hyponatremia Current Visit: Yes Status: Acute Assessment and Plan: similar presentation in 02/2019, responded to IVF 128-129 on IVF, will continue to monitor daily (6) Tobacco abuse Current Visit: No Status: Chronic Assessment and Plan: counseled on smoking cessation, nicotine replacement therapy (7) Morbid obesity with BMI of 50.0-59.9, adult Current Visit: No Status: Chronic Assessment and Plan: Lifestyle modifications emphasized (8) DVT prophylaxis Current Visit: No Status: Acute Assessment and Plan: SQ hep - Time Spent with Patient Total time spent is greater than 50% in coordination of care (as documented) at patient's floor/unit and/or counseling patient: 25 - 35 minutes Plan of Care Discussed with: patient Internal Medicine: Result - Labs CBC & Chem 7: 05/17/19 13:14 05/17/19 13:14 Labs: Short CBC 05/17/19 Range/Units 13:14 WBC 8.0 (4.3-11.1) K/mcL Hgb 13.8 D (12.9-16.9) g/dL Hct 41.2 (37.5-50.1) % Plt Count 159 (140-400) K/mcL Neutrophils # 5.8 (1.6-8.9) K/mcL BMP 05/17/19 13:14 Sodium 129 L Potassium 4.1 Chloride 99 Carbon Dioxide 24 BUN 20 Creatinine 0.91 Glucose 111 H Calcium 8.4 L - Impressions Impressions Hip CT 05/17/19 17:09 IMPRESSION: 1. No acute osseous abnormality of the pelvis or left hip identified. 2. Mild degenerative changes of the left hip. D/ / Andrew Vargas MD / Andrew Vargas MD Interpreting Provider: Andrew Vargas MD Consult Discharge Plan - Plan Referrals: Minnie Ramirez DO [Primary Care Provider] - (Appointment has been requested. ) (2) PNA (pneumonia) Qualifiers: Pneumonia type: due to unspecified organism Laterality: right Lung location: upper lobe of lung Qualified Code(s): J18.1 - Lobar pneumonia, unspecified organism (4) Fall Qualifiers: Encounter type: initial encounter Qualified Code(s): W19.XXXA - Unspecified fall, initial encounter
[2019-05-18] MEDS: predniSONE 20 MG TABLET PO SCH (16:21)
[2019-05-19 01:32] LABS: Basophils % 0.3 %; Hematocrit 40.8 % (37.5-50.1); Hemoglobin 13.4 g/dL (12.9-16.9); Immature Granulocytes % 0.5 % (0-4); Lymphocytes # 1.1 K/mcL (0.6-4.6); Lymphocytes % 29.4 %; Mean Corpuscular HGB Conc 32.8 g/dL (31.6-35.5); Mean Corpuscular Volume 91.3 fL (83.0-100.0); Mean Platelet Volume 11.6 fL (9.4-12.4); Monocytes # 0.4 K/mcL (0.0-1.3); Monocytes % 10.2 %; Neutrophils # 2.3 K/mcL (1.6-8.9); Platelet Count 168 K/mcL (140-400); Red Blood Count 4.47 M/mcL (4.19-5.50); Red Cell Distribution Width 13.8 % (11.5-14.5); Segmented Neutrophils % 59.6 %
[2019-05-19 01:52] LABS: BUN/Creatinine Ratio 19 (6-26); Blood Urea Nitrogen 14 mg/dL (6-20); Calcium 9.4 mg/dL (8.6-10.3); Carbon Dioxide 27 mEq/L (23-29); Chloride 98 mEq/L (98-107); Glucose 115 mg/dL (70-105); Osmolality,Calculated 279 (280-300); Sodium 134 mEq/L (136-145); eGFR For African Americans > 60 (> 60); eGFR For Non-African Americans > 60 (> 60)
[2019-05-19 02:01] LABS: White Blood Count 3.8 K/mcL (4.3-11.1)
[2019-05-19] MEDS: Levalbuterol Neb 0.63 MG/3 ML IH SCH ×2 (04:15→10:40)
[2019-05-19] MEDS: *HR* Heparin 5,000 UNIT/ML VIAL SQ SCH (06:04)
[2019-05-19 07:50] VITALS: BP 120/74
[2019-05-19] MEDS: Piperacillin/Tazobactam 3.375 GM in 0.9 % Sodium Chloride Mini Bag 100 ML IVPB SCH (08:37)
[2019-05-19] MEDS: Aspirin 81 MG TAB.CHEW PO SCH (08:45)
[2019-05-19] MEDS: predniSONE 20 MG TABLET PO SCH (08:45)
[2019-05-19] MEDS: Gabapentin 400 MG CAPSULE PO SCH (08:45)
[2019-05-19] MEDS: Nicotine 21 MG PATCH.TD24 TD SCH (08:45)
[2019-05-19] MEDS: *HR* OxyCODONE Immed Rel 5 MG TABLET PO PRN (08:49)
--- NOTE | 2019-05-19 09:19 | Discharge Summary ---
- NOTES TO OUTPATIENT PROVIDER Notes to Outpatient Provider: Follow-up with PCP as outpatient Orders not resulted at time of discharge: Pending orders 05/16/19 16:45 Culture,Blood [BC] Stat Date of Encounter: 05/19/19 Time of Encounter: 07:45 - Discharge Diagnosis (1) Severe sepsis Priority: Primary Status: Acute (2) PNA (pneumonia) Priority: Secondary Status: Acute Qualifiers: Pneumonia type: due to unspecified organism Laterality: right Lung location: upper lobe of lung Qualified Code(s): J18.1 - Lobar pneumonia, unspecified organism (3) ALLA (acute kidney injury) Priority: Secondary Status: Acute (4) Fall Priority: Secondary Status: Acute Qualifiers: Encounter type: initial encounter Qualified Code(s): W19.XXXA - Unspecified fall, initial encounter (5) Hyponatremia Priority: Secondary Status: Acute (6) Tobacco abuse Priority: Secondary Status: Chronic (7) Morbid obesity with BMI of 50.0-59.9, adult Priority: Secondary Status: Chronic (8) DVT prophylaxis Priority: Secondary Status: Acute Hospital course: Mr. Orr is a 44 year old male with history of tobacco abuse, HTN, and morbid obesity, who was admitted for productive cough as well as an episode of fall with L hip injury. CT -ve for sequelae of traumatic injury but pt was noted to be febrile, tachycardic, and has leukocytosis. CXR and CT chest demonstrated RUL PNA and he was treated for severe sepsis associated with ALLA. Given his admission to the hospital < 90 days, he was treated with IV zosyn with clinical improvement. ALLA also resolved with IVF. He will be discharged home on a total of 7 days of abx with PO Levaquin and analgesics for L hip pain. Discharge discussed with: patient, nurse - Time Spent with Patient Total time spent providing and/or coordinating discharge services: 32 mins - Discharge Medications Prescriptions: New RX: Cyclobenzaprine [Flexeril] 10 mg PO TID PRN 5 Days #15 tablet PRN Reason: Spasms RX: Nicotine Patch [Nicoderm] 21 mg TD DAILY #21 [email or web address] RX: HYDROcodone/Acet 5/325 mg [[place] 5-325 mg] 1 tab PO Q6HR PRN 3 Days #12 tablet PRN Reason: Breakthrough Pain RX: predniSONE [PredniSONE] 40 mg PO DAILY 3 Days #6 tablet levoFLOXacin [Levaquin] 750 mg PO DAILY #5 tablet Continued RX: Lisinopril-HCTZ 10-12.5 [Prinzide 10-12.5] 1 tab PO DAILY RX: Albuterol Sulfate [Proventil Inhaler] 2 puff IH Q6HR PRN PRN Reason: sob/wheezing RX: diazePAM [Valium] 5 mg PO DAILY PRN PRN Reason: Anxiety RX: Gabapentin [Neurontin] 800 mg PO TID RX: Aspirin 81 mg PO DAILY Discontinued Meloxicam [Mobic] 15 mg PO DAILY Home Medications: RX: Aspirin 81 mg PO DAILY 06/30/15 [History] RX: Lisinopril-HCTZ 10-12.5 [Prinzide 10-12.5] 1 tab PO DAILY 02/24/19 [History] RX: Albuterol Sulfate [Proventil Inhaler] 2 puff IH Q6HR PRN 05/16/19 [History] RX: Gabapentin [Neurontin] 800 mg PO TID 05/16/19 [History] RX: diazePAM [Valium] 5 mg PO DAILY PRN 05/16/19 [History] RX: Cyclobenzaprine [Flexeril] 10 mg PO TID PRN 5 Days #15 tablet 05/19/19 [Rx] RX: HYDROcodone/Acet 5/325 mg [[place] 5-325 mg] 1 tab PO Q6HR PRN 3 Days #12 tablet 05/19/19 [Rx] RX: Nicotine Patch [Nicoderm] 21 mg TD DAILY #21 [email or web address] 05/19/19 [Rx] RX: predniSONE [PredniSONE] 40 mg PO DAILY 3 Days #6 tablet 05/19/19 [Rx] levoFLOXacin [Levaquin] 750 mg PO DAILY #5 tablet 05/19/19 [Rx] Allergies/Adverse Reactions: Allergy/AdvReac Type Severity Reaction Status Date / Time ibuprofen AdvReac Vomiting Verified 02/24/19 07:43 Date of admission: 05/18/19 10:26 Primary care physician: Satya Fox Consults: 05/19/19 08:42 Consult to Nurse Navigator [CONS] Routine Comment: PNEUMONIA - Constitutional Vitals: Temp Pulse Resp BP Pulse Ox 97.5 F L 74 15 120/74 96 05/19/19 07:49 05/19/19 07:49 05/19/19 07:49 05/19/19 07:49 05/19/19 07:49 Exam: General: Alert and oriented, not in distress. Obese male Cardiovascular:Normal S1 & S2, No JVD. Pulse regular and normal rate Lungs: Scattered rhonchi and wheezing R>L Abdomen:Soft, non-tender, no rigidity. Extremities:No deformity or swelling but has tenderness on palpation at the lateral aspect of L proximal thigh which is less obvious and yesterday Neurological:Normal cognition and motor skills. Non-focal Skin:Normal color, no rash, no lesions. - Patient Status Disposition: Home, Self-Care Condition: Good Functional capacity at discharge: independent ambulation Overall status at discharge: patient is progressing back to baseline - Discharge Instructions Instructions: Fall Prevention (DC), Pneumonia (DC), Sepsis (DC), Chronic Obstructive Pulmonary Disease (DC) Follow Up With: Minnie Ramirez DO [Primary Care Provider] - (Appointment has been requested. ) - Diet and Activity Activity: resume usual activities as tolerated Diet: low salt diet
[2019-05-19] MEDS ORDERED: Docusate Oral Soln 100 MG/10 ML UDC PO SCH (09:56)
--- NOTE | 2019-05-19 16:32 | Electrocardiograph Report ---
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
== END 2019-05-19 11:48 | disposition home or self-care (01) | DRG 871 ==
LOC: EMEROOARM 14:30 → 3BNU 14:30 → SUATTDRO 18:48 → 3BNU 21:10
PROVIDERS: ADMIT Pharmacist; ATTEND Internal Medicine